=== PATIENT | male | born 1995 | race Caucasian/White ===

== ENCOUNTER 2018-02-13 20:49 | Emergency (ER) | payer BC ==
[2018-02-13 21:10] VITALS: BP 129/65
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
--- NOTE | 2018-02-14 07:39 | RAD ---
INDICATION: Left shoulder pain after a fall COMPARISON: None. TECHNIQUE: 4 views of the left shoulder were obtained. FINDINGS: The adequately corticated bones are in normal alignment. Joint spaces appear maintained. No fracture, dislocation or focal bony abnormality is seen. IMPRESSION: Normal radiograph of the left shoulder. If the patient's symptoms persist, follow-up imaging is recommended. R0
== END 2018-02-13 21:54 | disposition home or self-care (01) ==
LOC: UCCORT 20:49
DX: S49.92XA Unspecified injury of left shoulder and upper arm, initial encounter (principal); W19.XXXA Unspecified fall, initial encounter; X50.0XXA Overexertion from strenuous movement or load, initial encounter; Y93.89 Activity, other specified; Y92.9 Unspecified place or not applicable
CPT/HCPCS: 99212; G0463

== ENCOUNTER 2019-07-30 20:33 | Emergency (ER) | payer BC ==
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
[2019-07-30 20:54] VITALS: BP 159/85
== END 2019-07-30 21:34 | disposition home or self-care (01) ==
LOC: UCCORT 20:33
DX: R10.12 Left upper quadrant pain (principal); R14.0 Abdominal distension (gaseous)
CPT/HCPCS: 81003; 99212; G0463